=== PATIENT | male | born 1955 | race Caucasian/White ===

== ENCOUNTER → 2022-08-03 | Outpatient (CLI) | payer MEDICARE | LOC: CARD 10:30 | PROVIDERS: ATTEND Internal Medicine Cardiovascular Disease | DX: I34.0 Nonrheumatic mitral (valve) insufficiency (principal); I51.7 Cardiomegaly; I48.19 Other persistent atrial fibrillation | CPT/HCPCS: 93306 ==

== ENCOUNTER 2022-09-02 09:00 | Day surgery (SDC) | payer MEDICARE ==
[~2022-09-02] VITALS: Ht 187.9 cm; Wt 125.6 kg
[2022-09-02 08:31] VITALS: BP 120/76
[~2022-09-02 09:00] MED LIST: AMOX500C2 PO; CATHETER FLUSH 10 ML SYR IV PRN; LISI40TA9 PO; NS IV 1000 ML 1,000 ML IV ONE; NS IV 1000 ML 1,000 ML ONE; RIVA20TA PO; SOTA120T PO; proPOfol 200 MG/20 ML (DIPRIVAN) VIAL IV ONE
--- NOTE | 2022-09-02 09:17 | Cardiac Procedure Note-[facility] ---
Cardiology Procedures Date of Procedure 09/02/22 DIRECT-CURRENT CARDIOVERSION INDICATION: Persistent atrial fibrillation. PROCEDURE: After informed consent and in the fasting state, deep sedation was provided by the anesthesia department. I subsequently performed direct-current cardioversion in a stepwise fashion with synchronized based phasic shocks starting with 100 J and then 150 J and with the second shock, the patient converted from atrial fibrillation to sinus bradycardia. IMPRESSION: 1. Status post successful direct-current cardioversion with a final biphasic energy level of 150 J with successful conversion of atrial fibrillation to sinus bradycardia. Certain portions of this document may have been dictated utilizing voice recognition technology. Inherent to this technology, typographical and grammatical errors may exist. As much as I am diligent to identify and correct these mistakes, some errors may remain in the document. ALEJANDRA APPIAH JR, MD Sep 02, 2022 09:17
[2022-09-02 09:26] VITALS: BP 106/64
[2022-09-02 09:29] VITALS: BP 101/66
--- NOTE | 2022-09-02 09:30 | Anesthesia-General Post-Op ---
MAC Patient Condition Mental Status/LOC: Same as Preop Cardiovascular: Satisfactory Nausea/Vomiting: Absent Respiratory: Satisfactory Pain: Controlled Complications: Absent Post Op Complications Complications None Follow Up Care/Instructions Patient Instructions None needed. Anesthesiology Discharge Order Discharge Order Patient is doing well, no complaints, stable vital signs, no apparent adverse anesthesia problems. No complications reported per nursing. LIZZY SCHULER CRNA Sep 02, 2022 09:30
[2022-09-02 09:34] VITALS: BP 121/88
[2022-09-02 09:45] VITALS: BP 111/74
[2022-09-02 09:55] VITALS: BP 121/73
== END 2022-09-02 10:12 | disposition home or self-care (01) ==
LOC: CATH 09:00
PROVIDERS: ATTEND Internal Medicine Cardiovascular Disease
DX: I48.19 Other persistent atrial fibrillation (principal); Z87.891 Personal history of nicotine dependence; I34.0 Nonrheumatic mitral (valve) insufficiency; I10 Essential (primary) hypertension; E66.9 Obesity, unspecified; Z68.35 Body mass index [BMI] 35.0-35.9, adult; Z79.899 Other long term (current) drug therapy
CPT/HCPCS: 87081; 92960; 93005

== ENCOUNTER → 2023-07-12 | Outpatient (CLI) | payer MEDICARE ==
[~2023-07-12] MED LIST changes: -CATHETER FLUSH 10 ML SYR IV PRN; -NS IV 1000 ML 1,000 ML IV ONE; -NS IV 1000 ML 1,000 ML ONE; +REGADENOSON 0.4 MG/5 ML SYR IV ONE; -proPOfol 200 MG/20 ML (DIPRIVAN) VIAL IV ONE
[2023-07-12] MEDS: CATHETER FLUSH 10 ML SYR IVP PRN ×2 (12:02→13:14)
[2023-07-12 13:13] VITALS: BP 159/73
--- NOTE | 2023-07-14 19:26 | STRESS TEST ---
DATE OF SERVICE: 07/12/2023 RESTING AND POST REGADENOSON TECHNETIUM-99M TETROFOSMIN SPECT CT IMAGING ORDERING PHYSICIAN: Dr. Perez. CLINICAL DIAGNOSIS: Paroxysmal atrial fibrillation. Baseline images were carried out after injection of 10.94 mCi of technetium-99m tetrofosmin. This was followed by 0.4 mg regadenoson and 32.6 mCi technetium-99m tetrofosmin for stress imaging. The electrocardiogram showed sinus rhythm at baseline. It did not change significantly with regadenoson infusion. The patient tolerated the procedure well. Review of images at rest and following stress does not indicate any significant perfusion defects consistent with myocardial ischemia or infarction. Gated images show normal global left ventricular systolic function with normal regional wall motion. Left ventricular ejection fraction is calculated to be 66%. Left ventricular end-diastolic volume is 113 mL. CONCLUSIONS: 1. No evidence of any significant myocardial ischemia or infarction on this study. 2. Normal regional wall motion. 3. Normal global left ventricular systolic function with a calculated ejection fraction of 66%. 4. Mild cardiomegaly. Job ID: [id number] DocumentID: [id number] Dictated Date: 07/14/2023 16:35:57 Revenue Enforcement Agent Date: 07/14/2023 19:25:00 Dictated By: NÉSTOR PEREZ MD; TEDDY; FACP; FACC;
== END ==
LOC: CARD 11:34
PROVIDERS: ATTEND Internal Medicine Cardiovascular Disease
DX: I48.19 Other persistent atrial fibrillation (principal)
CPT/HCPCS: 78452; 93017; A9502